=== PATIENT | male | born 2000 | race Caucasian/White ===

== ENCOUNTER 2021-10-21 15:13 | Outpatient (CLI) | payer OTHER, BC, SELFPAY ==
[2021-10-21 16:03] LABS: D Dimer 0.33 ug/mL (<0.48)
== END 2021-10-21 15:14 | disposition home or self-care (01) ==
PROVIDERS: Visit Provider Emergency Medicine
DX: G62.9 Polyneuropathy, unspecified (principal); M79.661 Pain in right lower leg
CPT/HCPCS: 36415; 85380

== ENCOUNTER 2022-01-23 21:56 | Emergency (ER) | payer OTHER, SELFPAY ==
[2022-01-23 21:58] VITALS: BP 147/101; PULSE 120; RESP 18; TEMP 35.8; O2SAT 99
[2022-01-23] MEDS: predniSONE 20 MG TABLET 40 MG PO (22:45)
[2022-01-23 22:47] VITALS: PULSE 117; RESP 18
[2022-01-23] MEDS: ALBUTEROL SULFATE NEB 2.5 MG/3 ML INH INHALATION (22:47)
[2022-01-23 22:55] VITALS: PULSE 127; RESP 20
[2022-01-23 22:56] VITALS: PULSE 128; O2SAT 98
--- NOTE | 2022-01-23 23:53 | ED.URI ---
HPI - URI/Sore Throat General Chief Complaint: Upper Respiratory Infection Stated Complaint: URI, SOB Time Seen by Provider: 01/23/22 22:25 Source: patient Mode of arrival: ambulatory Limitations: no limitations History of Present Illness HPI Narrative: Pt reports 5 year history of seasonal cough, nasal congestion and post nasal drip, attributed to allergies. This month, he has experienced nasal congestion, yellow nasal discharge, the sensation of posterior rhinorrhea and cough with wheezing. He does not smoke. He was evaluated by a provider via telehealth visit last week and prescribed antibiotics (of unknown type) one week ago, taking as directed without symptom relief. He is also using Flonase, no other modifying factors attempted. he has no known COV exposures. He is vaccinated for COV 19 MD elicited complaint: cough and nasal congestion Pertinent past history: sinusitis Onset (ago): month(s) Related Data Allergies Allergy/AdvReac Type Severity Reaction Status Date / Time No Known Allergies Allergy Unverified 01/23/22 21:59 Exam Const: General: healthy appearing and no acute distress Nutritional Appearance: obese Orientation/consciousness: patient oriented x3 HENMT: Head: normal to inspection Eyes: Conjunctivae: conjunctivae normal Pupils: Equal, round and reactive pupils present EOM: EOMs intact bilaterally Neck: Neck: normal visual inspection Chest: Chest palpation & inspection: normal inspection of the chest Resp: Auscultation: wheezes expiratory wheezes, inspiratory wheezes, left upper and right upper Cardio: Rate: regular rate and tachycardic GI: GI Palp: Yes Soft to palpation Skin: General skin exam: normal color Rashes: no rashes Neuro: General: patient oriented x3, moves all extremities, no meningeal signs and CN's II-XI intact bilaterally Extrem: General: normal to inspection Psych: Mental Status: mental status grossly normal Affect: normal affect Thought content: Yes Normal thought content present Course Course Emergency Course: Pt's tachycardia improved, at rest, HR was 102 after neb treatment. wheezing has resolved following treatment and patient endorses feeling much better. He is advised of plan to switch abx therapy from Amoxil to Zithromax, adding short steroid course, inhaler and daily Zyrtec or Claritin. FU with PCP stressed, as his seasonal cough and wheezing is likely an allergy or seasonal induced asthma and will benefit from preventative therapy. He is agreeable with plan and verbalizes understanding of instructions provided. Vital Signs Vital signs: Vital Signs Temperature 35.8 C L 01/23/22 21:58 Pulse Rate 120 H 01/23/22 21:58 Respiratory Rate 18 01/23/22 21:58 Blood Pressure 147/101 H 01/23/22 21:58 Pulse Oximetry 99 01/23/22 21:58 Temperature 35.8 C L 01/23/22 21:58 Pulse Rate 128 H 01/23/22 22:56 Respiratory Rate 20 01/23/22 22:55 Blood Pressure 147/101 H 01/23/22 21:58 Pulse Oximetry 98 01/23/22 22:56 MDM - URI/Sore Throat MDM Narrative Medical decision making narrative: seasonal allergies/bronchitis Differential Diagnosis Differential diagnosis: Likely upper respiratory infection, sinusitis, viral infection and bronchitis Lab Data Labs: Lab Results 01/23/22 Range/Units 23:12 SARS-CoV-2 RNA (RT-PCR) Negative Discharge Plan Discharge Clinical Impression: Bronchitis, Blood pressure elevated without history of HTN Patient Disposition: Home, Self-Care Condition: Improved Instructions: Antibiotic Form, Acute Bronchitis (ED) Additional Instructions: CONTINUE ORAL ANTIBIOTICS AND STEROIDS AT HOME DIRECTED, USE INHALER FOR RESCUE, START DAILY ANTIHISTAMINES AND MONITOR YOUR BLOOD PRESSURE AT HOME. FOLLOW UP WITH YOUR DOCTOR IN 2-3 DAYS WITHOUT FAIL, RETURN TO THE ER WITH ANY CONCERNS YOUR CONDITIONIS WORSENING. Prescriptions: New prednisone 20 mg tablet 40 mg PO DAILY Qty: 10 RF: 0 albuterol sulfate 9
[2022-01-23 23:56] LABS: SARS-CoV-2 RNA PCR Negative
[2022-01-24 00:24] VITALS: BP 147/88; PULSE 113; RESP 20; O2SAT 97
== END 2022-01-24 00:27 | disposition home or self-care (01) ==
PROVIDERS: Emergency Provider Nurse Practitioner Family; PCP Emergency Medicine
DX: J40 Bronchitis, not specified as acute or chronic (principal); R03.0 Elevated blood-pressure reading, without diagnosis of hypertension; Z20.822 Contact with and (suspected) exposure to COVID-19
CPT/HCPCS: 94640; 99283; C9803; J7512; U0003; U0005

== ENCOUNTER 2022-11-04 00:26 | Emergency (ER) | payer OTHER, SELFPAY ==
[2022-11-04 00:31] VITALS: BP 130/89; PULSE 98; RESP 20; TEMP 36.2
--- NOTE | 2022-11-04 02:28 | ED.EPISTAXIS ---
HPI - Epistaxis General Chief complaint: Epistaxis Stated complaint: nose bleed Time Seen by Provider: 11/04/22 01:55 Source: patient Mode of arrival: ambulatory Limitations: no limitations History of Present Illness HPI Narrative: 22-year-old male presents today with complaints of epitaxis x3 today. Patient was traveling down from [place] when he had a nosebleed on the way down which was stopped. States he had a second nosebleed which was stopped by putting tissue in his nose. Patient then was at home and had a third nosebleed and he could not get it stopped so came here today. Patient recently seen at [facility] and diagnosed with pneumonia and put on doxycycline. Related Data Allergies Allergy/AdvReac Type Severity Reaction Status Date / Time No Known Allergies Allergy Verified 11/04/22 00:35 Review of Systems Review of Systems: CONSTITUTIONAL: Denies fever, chills, or sweats. EYES: Denies visual changes, redness, or discharge. ENT: Nosebleed. Denies rhinorrhea, congestion, sore throat, or otalgia. CARDIOVASCULAR: Denies chest pain, palpitations, or edema. RESPIRATORY: Cough. Denies dyspnea. GASTROINTESTINAL: Denies abdominal pain, nausea, vomiting, or diarrhea. GENITOURINARY: Denies dysuria or hematuria. SKIN: Denies rash or itching. MUSCULOSKELETAL: Denies back pain, joint pain, or myalgia. NEUROLOGIC: Denies headache, numbness, dizziness, or weakness. PSYCHIATRIC: Denies anxiety or depression. Exam Narrative: GENERAL: Well-appearing, well-nourished, and in no acute distress. HEAD: Normocephalic, atraumatic. EYES: PERRLA and EOMI. ENT: Nares clear, no rhinorrhea or epistaxis. Mucous membranes moist. Oropharynx without tonsillar hypertrophy exudate or other lesions. Bilateral TMs pearly weathers nonbulging NECK: Supple. No adenopathy or masses. No carotid bruits or JVD CHEST: Clear to auscultation. No respiratory distress. No wheezes rales or rhonchi HEART: Regular rate and rhythm. No murmur heard. Normal peripheral pulses. Course Vital Signs Vital signs: Vital Signs Temperature 97.1 F L 11/04/22 00:31 Pulse Rate 98 11/04/22 00:31 Respiratory Rate 20 11/04/22 00:31 Blood Pressure 130/89 11/04/22 00:31 Temperature 97.1 F L 11/04/22 00:31 Pulse Rate 98 11/04/22 00:31 Respiratory Rate 20 12 00:31 Blood Pressure 130/89 11/04/22 00:31 MDM - Epistaxis MDM Narrative Medical decision making narrative: 22-year-old male HPI as noted. No bleeding noted to nares at this time. Discussed symptomatic treatment and follow-up with ENT if needed. Patient be discharged home. Differential Diagnosis Differential diagnosis: Likely anterior epistaxis and posterior epistaxis Medical Records Attestation: I reviewed the patient's medical records. Lab Data Labs: Urine Characteristics Clear Discharge Plan Discharge Clinical Impression: Epistaxis Patient Disposition: Home, Self-Care Condition: Improved Instructions: Antibiotic Form, Nosebleed (ED) Additional Instructions: Make sure to use a humidifier at home. May use saline nose spray to help keep the nose moisturized. Continue antibiotics as previously prescribed. Return with any new or worsening concerns. May follow-up with an ENT for further management if needed. Prescriptions: No Action prednisone 20 mg tablet 40 mg PO DAILY Qty: 10 0RF albuterol sulfate 90 mcg/actuation HFA aerosol inhaler 1 inh inhalation QID PRN (Reason: shortness of breath or wheezing) Qty: 8.5 0RF Rx Instructions: PLEASE DISPENSE ADULT SPACER FOR MDI USE azithromycin [Zithromax] 500 mg tablet 500 mg PO DAILY 5 Days Qty: 5 0RF Follow-up/Referrals: Keyon Woods MD [Physician] - (as needed) Cedric Shoemaker MD [Primary Care Provider] - Time of Disposition: 02:33
== END 2022-11-04 02:39 | disposition home or self-care (01) ==
PROVIDERS: Emergency Provider Nurse Practitioner Family; PCP Emergency Medicine
DX: R04.0 Epistaxis (principal); J18.9 Pneumonia, unspecified organism
CPT/HCPCS: 99281

== ENCOUNTER 2024-11-01 20:50 | Emergency (ER) | payer BC, MEDICAID, SELFPAY ==
[2024-11-01 21:08] VITALS: BP 175/103; PULSE 61; RESP 16; TEMP 36.2; O2SAT 100
--- NOTE | 2024-11-02 00:36 | ED.DENTAL ---
HPI - Dental/Oral General Chief complaint: Dental/Oral Stated complaint: tooth pain Time Seen by Provider: 11/01/24 22:28 Source: patient Mode of arrival: ambulatory Limitations: no limitations History of Present Illness HPI Narrative: This is a 24 year old male that presents to the ER for dental pain. Ongoing over the last month. Reports he has a broken tooth. Over the last couple of days his pain has worsened. He took Tylenol today with little relief. He has not seen a dentist. Denies fevers. MD Complaint: tooth pain Location: Tooth # (30) Related Data Allergies Allergy/AdvReac Type Severity Reaction Status Date / Time No Known Allergies Allergy Verified 11/01/24 20:52 Review of Systems Review of Systems: CONSTITUTIONAL: Denies fever ENT: Reports dentalgia All systems reviewed & are unremarkable except as noted in HPI and below PMFSH Past Medical History Medical History (Updated 11/02/24 @ 00:47 by Keily Cam PA-C) History of ADHD Social History Social History (Updated 11/02/24 @ 00:43 by Keily Cam PA-C) Substance use: never Exam Narrative: GENERAL: Well-appearing, well-nourished, and in no acute distress. HEAD: Normocephalic, atraumatic. EYES: EOMI. ENT: Mucous membranes moist. Oropharynx without tonsillar hypertrophy exudate or other lesions. Tooth #30 is fractured, tender to palpation. No surrounding erythema or fluctuance to suggest abscess NECK: Supple. No adenopathy or masses. CHEST: No respiratory distress. HEART: Regular rate EXTREMITIES: Normal range of motion. No edema. SKIN: Warm, dry, no rash. NEURO: No focal deficits. Alert and oriented x3. PSYCH: Normal mood and affect Course Course Emergency Course: patient agrees with plan of care Vital Signs Vital signs: Vital Signs Temperature 97.2 F L 11/01/24 21:08 Pulse Rate 61 11/01/24 21:08 Respiratory Rate 16 11/01/24 21:08 Blood Pressure 175/103 H 11/01/24 21:08 Pulse Oximetry 100 11/01/24 21:08 Oxygen Delivery Room Air 11/01/24 21:08 Temperature 97.2 F L 11/01/24 21:08 Pulse Rate 61 11/01/24 21:08 Respiratory Rate 16 11/01/24 21:08 Blood Pressure 175/103 H 11/01/24 21:08 Pulse Oximetry 100 11/01/24 21:08 Oxygen Delivery Room Air 11/01/24 21:08 MDM - Dental/Oral MDM Narrative Medical decision making narrative: Patient presents to the emergency department for toothache. He is afebrile and nontoxic appearing. No evidence of abscess on exam. Patient will be started on oral antibiotics and was instructed to have follow-up with a dentist. He was given warnings to return to the ER Differential Diagnosis Differential diagnosis: Likely toothache, dental abscess and fracture of tooth Critical Care Time Critical Care Time Critical Care Time: No Discharge Plan Discharge Clinical Impression: Toothache Patient Disposition: Home, Self-Care Condition: Stable Instructions: Antibiotic Form, Toothache (ED) Additional Instructions: Return to the Emergency Department if you experience fever >101, increasing swelling and redness of your tooth, or any other symptoms that are concerning to you Take antibiotic as prescribed. Tylenol or Ibuprofen as needed for pain. Follow up with a dentist Prescriptions: New amoxicillin-pot clavulanate 875-125 mg tablet 1 tablet PO Q12H 10 Days Qty: 20 0RF No Action prednisone 20 mg tablet 40 mg PO DAILY Qty: 10 0RF albuterol sulfate 90 mcg/actuation HFA aerosol inhaler 1 inh inhalation QID PRN (Reason: shortness of breath or wheezing) Qty: 8.5 0RF Rx Instructions: PLEASE DISPENSE ADULT SPACER FOR MDI USE azithromycin [Zithromax] 500 mg tablet 500 mg PO DAILY 5 Days Qty: 5 0RF Follow-up/Referrals: Cedric Shoemaker MD [Primary Care Provider] - Stand Alone Forms: Work/School Release IP
[2024-11-02] MEDS: KETOROLAC 30 MG/ML VIAL (*BKC) IM (00:44)
[2024-11-02 00:53] VITALS: BP 129/96; PULSE 75; RESP 15; O2SAT 99
== END 2024-11-02 01:05 | disposition home or self-care (01) ==
PROVIDERS: Emergency Provider Physician Assistant; PCP Emergency Medicine
DX: K08.89 Other specified disorders of teeth and supporting structures (principal); F90.9 Attention-deficit hyperactivity disorder, unspecified type
CPT/HCPCS: 96372; 99283; J1885

== ENCOUNTER 2025-04-05 11:03 | Emergency (ER) | payer BC, SELFPAY ==
[2025-04-05 11:06] VITALS: BP 129/98; PULSE 89; RESP 17; TEMP 36.5; O2SAT 99
[2025-04-05 11:15] VITALS: RESP 18
--- NOTE | 2025-04-05 11:21 | PC.NURSE ---
covid flu rsv swabs sent at this time
[2025-04-05 11:52] LABS: Strep Group A RT-PCR NOT DETECTED (Negative)
--- OUTSIDE RECORDS SUMMARY | 2025-04-05 11:53 | XMS_ITS | Continuity of Care Document ---
Author Organization [facility] Address [address] [facility] [place] [address] Phone Care Team Providers Care Account Service Representative Name Role Phone Cedric Shoemaker MD Unavailable Unavailable Allergies, Adverse Reactions, Alerts Substance Reaction Status Criticality No Known Allergies Active No Inform ation Procedures Procedure Date OFFICE/OUTPATIENT VISIT, EST OFFICE/OUTPATIENT VISIT, EST PREV VISIT, EST, AGE 18-39 OFFICE/OUTPATIENT VISIT, EST PREV VISIT, EST, AGE 18-39 OFFICE/OUTPATIENT VISIT, EST OFFICE/OUTPATIENT VISIT, EST OFFICE/OUTPATIENT VISIT, EST OFFICE/OUTPATIENT VISIT, EST OFFICE/OUTPATIENT VISIT, EST PREV VISIT, EST, AGE 18-39 OFFICE/OUTPATIENT VISIT, EST OFFICE/OUTPATIENT VISIT, EST PREV VISIT, NEW, AGE 18-39 OFFICE/OUTPATIENT VISIT, NEW Advance Directives Directive Yes / No Effective Date File Name No Information Encounters Encounter Description Practice Location Reason(s) For Visit Diagnoses Date Provider Providers Copied on Encounter OFFICE/OUTPA TIENT VISIT, EST [facility], [address] [place] [address], [id number], [place] tel:[phone] [facility] ADD (chief complaint) weight gain1 (chief complaint) anxiety1 (chief complaint) fatty live1 (chief complaint) Attention deficitAbnormal weight gainLiver diseaseGeneralized Anxiety Disorder 5 Navid Steele. [address], [address], [place], [place], [id number] , [place]. [phone] [facility], [address], [place], [place], [id number], [place] tel:[phone] [facility] No Information 4 Navid Steele. [address], [address], [place], [place], [id number] , [place]. tel:[phone] OFFICE/OUTPA TIENT VISIT, EST [facility], [address], [place], [place], [id number], [place] tel:[phone] [facility] ADD (chief complaint) liver1 (chief complaint) poly (chief complaint) weight1 (chief complaint) Attention deficitLiver diseaseSecondary polycythemiaAbnorma l weight gain 4 Navid Steele. [address], [address], [place], [place], [id number] , [place]. [phone] PREV VISIT, EST, AGE 18-39 [facility], [address], [place], [place], [id number], [place] tel:[phone] [facility] physical (chief complaint) Encounter for general adult medical exam w abnormal findingsAbnormal weight lossSecondary polycythemiaLiver diseaseObstructive Sleep Apnea HypopneaGeneralized Anxiety DisorderAttention deficitMild intermittent asthma, uncomplicated 4 Navid Steele. [address], [address], [place], [place], [id number] , [place]. tel:[phone] PREV VISIT, EST, AGE 18-39 [facility], [address], [place], [place], [id number], [place] tel:[phone] [facility] physical (chief complaint) Encounter for general adult medical exam w abnormal findingsPrimary central sleep apneaLiver diseaseSecondary polycythemiaMild intermittent asthma, uncomplicatedAbnorm al weight gain 3 Navid Steele. [address], [address], [place], [place], [id number] , [place]. tel:[phone] OFFICE/OUTPA TIENT VISIT, [facility], [address], [place], [place], [id number], [place] tel:[phone] [facility] pneumonia1 (chief complaint) allergy1 (chief complaint) LFt (chief complaint) fatigue1 (chief complaint) PneumoniaFatigueCou gh variant asthmaLiver diseaseSecondary polycythemia 3 Shoemaker Cedric. [address], [place], [place], [id number] , [place]. tel:[phone] OFFICE/OUTPA TIENT VISIT, [facility], [address] [place], [id number], [place] tel:[phone] [facility] cough1 (chief complaint) fatigue1 (chief complaint) Cough variant asthmaFatigue 2 Navid Steele. [address], [place], [place], [address] , [place]. tel:[phone] OFFICE/OUTPA TIENT VISIT, [facility], [address] [place], [id number], [place] tel:[phone] [facility] cough1 (chief complaint) LFT (chief complaint) polycythem ia1 (chief complaint) weight gain1 (chief complaint) Liver diseaseSecondary polycythemiaAbnorma l weight gainCough variant asthmaFatigue 2 Navid Steele. [address], [place], [place], [id number] , [place]. tel:[phone] OFFICE/OUTPA TIENT VISIT, [facility], [address] [place], [id number], [place] tel:[phone] [facility] sick (chief complaint) HTN (chief complaint) Essential (primary) hypertensionViral infection 2 Navid Steele. [address], [address], [place], [place], [id number] , [place]. tel:[phone] PREV VISIT, EST, AGE 18-39 [facility], [address], [place], [place], [id number], [place] tel:[phone] [facility] physical (chief complaint) Encounter for general adult medical exam w abnormal findingsAcute sinusitisSecondary polycythemiaLiver diseaseNeuropathy Fe- 2 Navid Steele. [address], [place], [place], [id number] , [place]. tel:[phone] OFFICE/OUTPA TIENT VISIT, EST [facility], [address], [place], [place], [id number], [place] tel:[phone] [facility] sick (chief complaint) HTN (chief complaint) leg (chief complaint) fatigue1 (chief complaint) Essential (primary) hypertensionViral infectionNeuropathy Chest painFatigue 1 Navid Steele. [address], [place], [place], [address] , [place]. tel:[phone] PREV VISIT, NEW, AGE 18-39 [facility], [address], [place], [place], [id number], [place] tel:[phone] [facility] physical (chief complaint) Encounter for general adult medical exam w abnormal findingsVasovagal attackChronic sinusitisFatigue Jul-0 1 Navid Steele. [address], [place], [place], [id number] , [place]. tel:[phone] Family History Family Member Type Diagnosis Age At Onset Father Problem sleep apnea Brother Problem Alive and well Mother Problem Alive and well Payers Payer name Insurance type Covered constitution party ID Authoriza tion(s) No Information Social History Type Description Quantity Date Captured Comments Alcohol Use Details beer & liquor 1 drink monthly 025 Caffeine Use Details Unknown Tobacco Use Status Current non-smoker Smoking Status Never smoker Sex Male Vital Signs Date / Time: Height Weight BMI Pulse Rate Blood Pressure Temperature Respiratory Rate Body Surface Area Head Circumference BMI percentile Pulse Ox Inhaled Ox 9:27 AM 71.00 in 309.40 lbs 43.1 5 kg/m eter (2) 81 /min 110/70 mm[Hg] 97.0 F 16 /min Chief Complaint And Reason For Visit From encounter dated '12/12/2024 09:23'. ADD (chief complaint). Description: Pt has ADD Pt tried adderall which did not help and also affected his memory so he stopped it weight gain1 (chief complaint). Description: Pt is obese. 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 Pt is working on diet and exercise. anxiety1 (chief complaint). Description: Pt has mild chronic anxiety and depression Pt uses pet catto alleviate his symptoms, which works well Pt denies any suicidal or homicidal thought Pt denies any crying spells Pt needs BOOM form completed fatty live1 (chief complaint). Description: Pt has fatty liver Pt denies any abd pain or jaundice Plan Of Treatment Date Type Action Status Referral Ordered: Otolaryngology (related to Cough variant asthma) ordered Referral Ordered: CHEST X-RAY PA/LAT TWO-VIEWS ordered Referral Ordered: Referrals: Otolaryngology. Evaluate and treat ordered Referral Ordered: SLEEP STUDY, ATTENDED ordered History Of Present Illness Encounter Date Complaint History Of Prese nt Illness ADD Pt has ADD Pt tr ied adderall which did not help and also affected his memory so he stopped it weight gain1 Pt is obese. 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 Pt is working on diet and exercise. anxiety1 Pt has mild dinkey skinner frederic anxiety and depression Pt uses pet cat to alleviate his symptoms, which works well Pt denies any suicidal or homicidal thought Pt denies any crying spells Pt needs BOOM form completed fatty live1 Pt has fatty susanne er Pt denies any abd pain or jaundice weight1 Pt is morbidly o bese Pt has difficulty losing weight ADD Pt has ADD. Pt t ried ritalin but did not help very much. Pt still has difficulty with focus and concentration liver1 Pt has chronic m ildly elevated LFT Pt denies any abd pain or jaundice poly Pt has mild poly cythemia Pt has normal iron and ferritin. Pt does have sleep apnea but he is noncompliant with cpap. he denies any fatigue physical Pt needs annual physical. Pt states that he has not had any allergy or asthma symptoms for long time Pt is off all inhalers Pt has been intentionally losing weight with diet and exercise. Pt has not been using cpap for long time Pt denies any fatigue or snoring Pt has history of polycythemia and liver disease Pt never did follow up lab work. Pt does have chronic anxiety and depression and he needs BOOM letter to keep his cat at the dorm Pt is back in school now and he has history of ADD for long time and he used to take ADD medication long time ago Pt has difficulty with focus and concentration and completing tasks and he wants some ADD medication Pt denies any suicidal or homicidal thought pt denies any crying spells physical Pt needs annual physical pt has asthma and allergy. Pt is on advair and singulair and OTC anti-histamine and he is doing well. He denies any wheezing, cough, sob, hemoptysis. Pt has not done x ray yet. Pt has not had the need to use albuterol recently. Pt has chronic fatigue with snoring .Pt has sleep apnea. Pt also is morbidly obese Pt failed diet and exercise and weight loss. pneumonia1 Pt recently went to [place] for a trip and he developed pneumonia and visited ER. Pt was treated with abx. Pt currently denies any worsening sob, cough or any hemoptysis. Pt denies any fever or chest pain allergy1 Pt has chronic s inus allergy and asthma. Pt has chronic cough with wheezing and sob Pt is taking advair and singulair which helps his symptoms but he still has frequent coughing and wheezing. LFt Pt has elevated LFT ,Pt denies any abdominal pain or jaundice. Pt has polycythemia. Pt has not done lab yet fatigue1 Pt has chronic f atigue. Pt snores. pt is obese. Pt is doing his home sleep study now fatigue1 He has not done lab yet or home sleep study yet but he is working on above cough1 Pt c/o constant and intermittent dry cough for 4 years. Pt denies any hemoptysis. Pt states that he coughs up clear phlegm sometimes. Pt states that he coughs more in the morning and while at night trying to go sleep. Pt feels something ticklish around his throat which triggers the cough. Pt has occasional wheezing and he feels sob when he coughs a lot. Pt has been using a lot of albuterol which does not seem to help with the cough anymore. Pt cr any GERD. Pt denies any sneezing Pt has mild sinus congestion and postnasal drainage as well. Pt denies any fever Pt denies any acute sob. Pt started advair and singular last month and he feels amazingly well and he has not had any cough or sob or wheezing at all and he has not had the need to use albuterol at all since starting above medication last month cough1 Pt c/o constant and intermittent dry cough for 4 years. Pt denies any hemoptysis. Pt states that he coughs up clear phlegm sometimes. Pt states that he coughs more in the morning and while at night trying to go sleep. Pt feels something ticklish around his throat which triggers the cough. Pt has occasional wheezing and he feels sob when he coughs a lot. Pt has been using a lot of albuterol which does not seem to help with the cough anymore. Pt cr any GERD. Pt denies any sneezing Pt has mild sinus congestion and postnasal drainage as well. Pt denies any fever Pt denies any acute sob. 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 polycythemia1 Pt has history o f polycythemia. Pt could not afford to do any work up in the past LFT Pt has history o f high LFT. Pt denies any abd pain or jaundice. sick Pt recently went to ER due to productive cough, running nose, mild sob and wheezing, and sneezing and sore throat. He denies any dysphagia. Pt denies chest pain. Pt does have history of allergy and mild asthma symptoms. He was treated with albuterol neb, Z-david, prednisone and also albuterol inhaler and he states that his symptoms currently completely resolved Pt denies any fever HTN His bp was sligh tly elevated in ER Pt denies any chest pain or headache physical Pt needs annual physical Pt c/o sneezing, sinus congestion, sore throat, postnasal drainage, mild dry cough for 1 months. Pt denies any sob. Pt has chronic sinus allergy symptoms. Pt denies any fever. Pt never tried nasal spray. Pt denies any sick contact or sob. Pt has high LFT and also polycythemia on recent lab work. Pt denies any fatigue. Pt denies any trouble with breathing or snoring. leg Pt notices that his right leg becomes hot and then cold with some leg tingling about once per week on and off for two months if he sits for long time. Pt does sit a lot while at work. Pt denies any discoloration of toes. Pt denies any claudication. Pt denies any edema. pt denies any leg weakness. Pt denies any recent travel or bedrest. Pt denies any chest pain or sob sick Pt c/o mild stom ach upset, sore throat only when he drinks liquid, mild dizziness, dull chest pain with deep breathing for 3 days. Pt denies any sob, cough, fever. Pt denies any leg pain Pt denies any recent travel or bedrest .Pt denies any sick contact. Pt denies any headache .Pt denies any ear pain. Pt denies any nausea, vomiting, diarrhea. pt denies any recent travel . Pt denies any GERD. Pt only notices mild dull ache around front chest wall area with deep breath. Pt denies any exertional chest pain or sob. pt notices mild sinus congestion. Pt denies any nasal drainage. Pt denies any nausea, vomiting pt denies any loss of taste and smell Pt is fully vaccinated for COVID. Pt had negative COVID testing yesterday at home . Pt denies any sick contact HTN Pt has mild HTn today Pt denies any chest pain or headache fatigue1 Pt states that abhilash longoria resolved. he does not want sleep study physical Pt needs annual physical. Pt had acute onset of syncope about one year ago. Pt never passed out before or after that one episode. Pt denies any headache. Pt denies any mental status change. Pt states that he was in the hot tub for long time and he came out and then passed out for about 60 seconds. Pt did not have any tremor or drooling pt did not have any confusion after waking up. Pt states that this never happened again. Pt states that he feels tired in the morning a lot .Pt states that he always wakes up feeling chest and sinus congestion with postnasal drainage with some coughing with a lot of yellow and green phlegm. Pt states that sometimes laughing trigger some dry cough sometimes throughout the day. pt denies any wheezing or sob. Pt is not smoking. Pt also has frequent GERD. His previous PCP told him that he has congestion and postnasal drainage. Pt tried sinus rinse but did not work Pt has occasional sneezing worse in the morning. Pt states that above has been going on for 4-5 years. Pt also has history of remote asthma. Pt states that he wheezes occasionally but no sob. Pt denies any fever Instructions Date Instruction Additional Infor mation No Information Assessments Type Assessment Date assessment Attention deficit assessment Abnormal weight gain assessment Liver disease assessment Generalized Anxiety Disorder Nov Mental Status Date Cognitive Assessment Orientation - [place] ed to time, place, person, situation.
[2025-04-05 12:03] LABS: Influenza A QL RT-PCR Negative (Negative); Influenza B QL RT-PCR Negative (Negative); RSV RNA, RT-PCR Negative (Negative); SARS-CoV-2 RNA PCR Negative (Negative)
--- NOTE | 2025-04-05 12:11 | ED_ITS ---
HPI - URI/Sore Throat General Chief Complaint: Medical Clearance Stated Complaint: Needs medical clearance for NICU Time Seen by Provider: 04/05/25 11:23 History of Present Illness HPI Narrative: 24-year-old otherwise healthy patient presenting to the emergency department for evaluation of a cough for the last 2 days. Patient states his daughter is in the ICU and he needs to make sure he is not contagious prior to visiting her. Endorses a sore throat and a nonproductive cough for 2 days that got better with pseudoephedrine and [id number] flu medications. Was otherwise in his normal state of health, denies any shortness a breath or any other symptoms at this time. No fever chills. Related Data Allergies Allergy/AdvReac Type Severity Reaction Status Date / Time No Known Allergies Allergy Verified 04/05/25 11:04 Review of Systems Review of Systems: As reviewed above [facility] Past Medical History Medical History History of ADHD Social History Social History Substance use: never Exam Narrative: GENERAL: [Well-appearing, well-nourished, and in no acute distress.] HEAD: [Normocephalic, atraumatic.] EYES: [PERRLA and EOMI.] ENT: Nares clear, no rhinorrhea or epistaxis. Mucous membranes moist. Posterior or pharyngeal erythema without exudates or tonsillar enlargement. No lymphadenopathy. NECK: Supple. CHEST: [Clear to auscultation. No respiratory distress.] HEART: [Regular rate and rhythm]. No murmur heard. [Normal peripheral pulses.] ABDOMEN: [Soft, nondistended], [nontender], [No rigidity or guarding] EXTREMITIES: Normal range of motion. [No edema.] SKIN: Warm, dry, no rash. NEURO: [No focal deficits]. Alert and oriented [x3.] PSYCH: [Normal mood and affect.] Course Vital Signs Vital signs: Vital Signs Temperature 36.5 C 04/05/25 11:06 Pulse Rate 89 04/05/25 11:06 Respiratory Rate 17 04/05/25 11:06 Blood Pressure 129/98 H 04/05/25 11:06 Pulse Oximetry 99 04/05/25 11:06 Oxygen Delivery Room Air 04/05/25 11:06 Temperature 36.5 C 04/05/25 11:06 Pulse Rate 89 04/05/25 11:06 Respiratory Rate 18 04/05/25 11:15 Blood Pressure 129/98 H 04/05/25 11:06 Pulse Oximetry 99 04/05/25 11:06 Oxygen Delivery Room Air 04/05/25 11:06 MDM - URI/Sore Throat MDM Narrative Medical decision making narrative: 24-year-old otherwise healthy male presenting with URI symptoms. Patient has a daughter presently in the ICU and he wants to make sure he does not have any contagious infections. Discussed with the patient that are panels here will test for major infection such as COVID, flu, RSV and strep however we do not have availability for and expected panel and he likely does have a viral cause to his upper respiratory infection that will need to be carefully watched with precautions especially with his daughter in the ICU. Advised him N95 wearing as well as refraining from contact or visiting if he has a fever or productive cough. COVID flu, RSV, strep swabs were all obtained and negative. Patient is safely discharged home at this time. Medical Records Attestation: I reviewed the patient's medical records. Lab Data Attestation: I reviewed the patient's lab results. Labs: Lab Results 04/05/25 Range/Units 11:19 Influenza A (RT-PCR) Negative (Negative) Influenza B (RT-PCR) Negative (Negative) RSV (RT-PCR) Negative (Negative) SARS-CoV-2 RNA (RT-PCR) Negative (Negative) Group A Strep (PCR) Not detected (Negative) Discharge Plan Discharge Clinical Impression: Acute upper respiratory infection Patient Disposition: Home Condition: Stable Instructions: Antibiotic Form Additional Instructions: You tested negative for COVID, flu, RSV, strep. Your symptoms are likely secondary to a viral upper respiratory infection and you will be contagious if you have any fever or productive cough. Wear an N95 mask if you must visit your family in the ICU or refrain from any visiting or contact until symptom resolution entirely. Patient Language: Upper Sorbian Prescriptions: No Action prednisone 20 mg tablet 40 mg PO DAILY Qty: 10 0RF albuterol sulfate 90 mcg/actuation HFA aerosol inhaler 1 inh inhalation QID PRN (Reason: shortness of breath or wheezing) Qty: 8.5 0RF Rx Instructions: PLEASE DISPENSE ADULT SPACER FOR MDI USE azithromycin [Zithromax] 500 mg tablet 500 mg PO DAILY 5 Days Qty: 5 0RF amoxicillin-pot clavulanate 875-125 mg tablet 1 tablet PO Q12H 10 Days Qty: 20 0RF Follow-up/Referrals: Cedric Shoemaker MD [Primary Care Provider] - Time of Disposition: 12:15
[2025-04-05 12:24] VITALS: BP 137/80; PULSE 84; RESP 18; TEMP 37.1; O2SAT 98
== END 2025-04-05 12:16 | disposition home or self-care (01) ==
PROVIDERS: Physician Assistant; Emergency Provider Student in an Organized Health Care Education/Training Program; PCP Emergency Medicine
DX: J06.9 Acute upper respiratory infection, unspecified (principal); Z20.822 Contact with and (suspected) exposure to COVID-19
CPT/HCPCS: 87637; 87651; 99283